=== PATIENT | male | born 1990 ===

== ENCOUNTER → 2024-05-13 | Outpatient (REF) | payer OTHER ==
[2024-05-13 08:40] LABS: SEMEN APPEARANCE OPAQUE (OPAQUE); SEMEN VISCOSITY LIQUID (LIQUID); SEMEN VOLUME 2.6 ml (2.0-5.0); SPERM CONCENTRATION 79.9 M/ml (>=15.0); WBC CONCENTRATION <=1 M/ml (<=1 M/ml)
[2024-05-13 08:41] LABS: TOTAL PROGRESSIVE SPERM 33.3 M/Ejac.
== END ==
LOC: M LAB REF 08:37
PROVIDERS: ATTEND Physician Assistant
DX: N46.9 Male infertility, unspecified (principal)